=== PATIENT | female | born 1990 | race Caucasian/White ===

== ENCOUNTER 2023-11-10 13:22 | Emergency (ER) | payer OTHER ==
[~2023-11-10] VITALS: Ht 160 cm; Wt 85.6 kg
[2023-11-10] MEDS ORDERED: ATIV1TAB10 PO (13:42)
[2023-11-10] MEDS ORDERED: ZOLO100T PO (13:42)
[2023-11-10 15:30] VITALS: BP 116/76; TEMP 97.4; O2SAT 100
[2023-11-10 15:50] LABS: BASO # 0.1 10^3/uL (0.0-0.2); EOS # 0.1 10^3/uL (0.0-0.5); EOS % 2.2 % (0.0-3.0); HEMATOCRIT 42.6 % (36.0-47.0); HEMOGLOBIN 14.4 g/dl (12.0-15.5); LYMPH # 1.5 10^3/uL (1.5-5.0); LYMPH % 23.8 % (24.0-44.0); MEAN CORPUSCULAR HEMOGLOBIN 31.4 pg (27.0-33.0); MEAN CORPUSCULAR HGB CONC 33.8 g/dl (32.0-36.5); MEAN CORPUSCULAR VOLUME 92.8 fl (80.0-96.0); MONO # 0.5 10^3/uL (0.0-0.8); NEUTROPHILS # 4.1 10^3/uL (1.5-8.5); NEUTROPHILS % 64.8 % (36.0-66.0); PLATELET COUNT, AUTOMATED 278 10^3/uL (150-450); RED BLOOD COUNT 4.59 10^6/uL (4.00-5.40); WHITE BLOOD COUNT 6.3 10^3/uL (4.0-10.0)
[2023-11-10 16:35] LABS: ERYTHROCYTE SEDIMENTATION RATE 27 mm/hr (0-20)
== END 2023-11-10 17:10 | disposition left against medical advice (07) ==
LOC: M ED 13:22
DX: R20.2 Paresthesia of skin (principal); F41.9 Anxiety disorder, unspecified; F32.A Depression, unspecified